=== PATIENT | female | born 1975 | race Caucasian/White ===

== ENCOUNTER 2016-07-24 08:15 | Emergency (ER) | payer BC ==
[~2016-07-24] VITALS: Ht 152.4 cm; Wt 63.9 kg
[~2016-07-24 08:15] MED LIST: BUSPAR10 MG PO; CIPRO500 MG PO; CYCLOBENZAPRINE5 MG PO; DOXYCYCLINE HY100 MG PO; DULOXETINE HCL60 MG PO; FLAGYL500 MG PO; MOTRIN600 MG PO; NAPROXEN500 MG PO; PROZAC40 MG PO; RANITIDINE HCL150 MG PO; TRAMADOL HCL50 MG PO; XANAX0.25 MG PO; ZANTAC150 MG PO; ZOFRAN ODT4 MG PO; [UNRECOGNIZED DRUG - REMARK]
[2016-07-24 09:19] LABS: MCH 30.5 PG (29.0-34.0); MCHC 34.4 G/DL (30.0-36.0); MCV 88.6 FL (83-99); MEAN PLAT.VOLUME 9.9 uM^3 (9.5-12.4); PLATELET COUNT 298 K/uL (156-360); RBC DIS.WIDTH-CV 12.1 % (11.8-14.6); RBC DIS.WIDTH-SD 38.5 % (39-53); RED BLOOD COUNT 4.63 M/uL (3.80-5.20); WHITE BLOOD COUNT 6.8 K/uL (4.1-10.2)
[2016-07-24 09:29] LABS: CHLORIDE 107 mEq/L (99-109); POTASSIUM 4.3 mEq/L (3.7-5.4); SODIUM 136 mEq/L (136-147)
[2016-07-24 09:31] LABS: GLUCOSE 98 mg/dL (70-99)
[2016-07-24 09:32] LABS: ANION GAP 10 MEQ/L (2-14)
[2016-07-24 09:35] LABS: GFR ESTIMATE (CALCULATED) > 59 mL/min/; UREA NITROGEN (BUN) 12 mg/dL (9-23)
[2016-07-24 09:43] LABS: ERTH.SED.RATE 17 MM/HR (0-20)
[2016-07-24 10:27] LABS: C-REACTIVE PROTEIN 6.6 MG/L (0-10)
[2016-07-24] MEDS ORDERED: PREDNISONE10 MG PO (11:47)
[2016-07-24 12:03] VITALS: BP 130/98
== END 2016-07-24 12:04 | disposition home or self-care (01) ==
LOC: EME 08:15
PROVIDERS: Nurse Practitioner Family
DX: H57.9 Unspecified disorder of eye and adnexa (principal); F41.9 Anxiety disorder, unspecified
CPT/HCPCS: 80048; 85027; 85651; 86140; 99281; 99284; J7512; Q0177

== ENCOUNTER 2016-08-12 17:12 | Emergency (ER) | payer BC ==
[~2016-08-12] VITALS: Ht 152.4 cm; Wt 64.5 kg
[~2016-08-12 17:12] MED LIST changes: +PREDNISONE10 MG PO
[2016-08-12 17:25] VITALS: BP 115/74
[2016-08-12] MEDS ORDERED: NORTRIPTYLINE H10 MG PO (18:01)
[2016-08-12] MEDS ORDERED: AMOXICILLIN875 MG PO (18:02)
[2016-08-12 18:46] LABS: HEMATOCRIT 39.7 % (36.0-46.0); MCH 30.4 PG (29.0-34.0); MCHC 34.3 G/DL (30.0-36.0); MCV 88.8 FL (83-99); MEAN PLAT.VOLUME 9.8 uM^3 (9.5-12.4); PLATELET COUNT 265 K/uL (156-360); RBC DIS.WIDTH-CV 12.7 % (11.8-14.6); RBC DIS.WIDTH-SD 40.1 % (39-53); RED BLOOD COUNT 4.47 M/uL (3.80-5.20); WHITE BLOOD COUNT 7.5 K/uL (4.1-10.2)
[2016-08-12 18:58] LABS: CHLORIDE 110 mEq/L (99-109); POTASSIUM 4.3 mEq/L (3.7-5.4); SODIUM 140 mEq/L (136-147)
[2016-08-12 18:59] LABS: GLUCOSE 101 mg/dL (70-99)
[2016-08-12 19:01] LABS: ANION GAP 7 MEQ/L (2-14)
[2016-08-12 19:03] LABS: GFR ESTIMATE (CALCULATED) > 59 mL/min/
[2016-08-12 19:04] LABS: UREA NITROGEN (BUN) 6 mg/dL (9-23)
[2016-08-12] MEDS ORDERED: ANTIVERT25 MG PO (20:16)
[2016-08-12] MEDS ORDERED: PREDNISONE10 MG PO (20:16)
== END 2016-08-12 20:31 | disposition home or self-care (01) ==
LOC: EME 17:12
PROVIDERS: Physician Assistant
DX: T42.6X5A Adverse effect of other antiepileptic and sedative-hypnotic drugs, initial encounter (principal); R42 Dizziness and giddiness; R20.0 Anesthesia of skin
CPT/HCPCS: 70450; 80048; 85027; 99281; 99283

== ENCOUNTER 2017-03-03 18:13 | Emergency (ER) | payer BC ==
[~2017-03-03] VITALS: Ht 152.4 cm; Wt 63.0 kg
[~2017-03-03 18:13] MED LIST changes: +AMOXICILLIN875 MG PO; +ANTIVERT25 MG PO; +NORTRIPTYLINE H10 MG PO
[2017-03-03 19:50] LABS: HEMATOCRIT 39.3 % (36.0-46.0); MCH 30.5 PG (29.0-34.0); MCHC 34.1 G/DL (30.0-36.0); MCV 89.3 FL (83-99); MEAN PLAT.VOLUME 9.5 uM^3 (9.5-12.4); PLATELET COUNT 265 K/uL (156-360); RBC DIS.WIDTH-CV 12.1 % (11.8-14.6); RBC DIS.WIDTH-SD 39.8 % (39-53); WHITE BLOOD COUNT 6.3 K/uL (4.1-10.2)
[2017-03-03 20:01] LABS: CHLORIDE 111 mEq/L (99-109); POTASSIUM 3.9 mEq/L (3.7-5.4); SODIUM 141 mEq/L (136-147)
[2017-03-03 20:02] LABS: GLUCOSE 102 mg/dL (70-99)
[2017-03-03 20:04] LABS: ANION GAP 8 MEQ/L (2-14)
[2017-03-03 20:06] LABS: GFR ESTIMATE (CALCULATED) > 59 mL/min/
[2017-03-03 20:07] LABS: UREA NITROGEN (BUN) 9 mg/dL (9-23)
[2017-03-03 20:12] LABS: TROP-I INTERPRETATION NEGATIVE; TROPONIN-I < 0.01 ng/mL (0.0-0.30)
[2017-03-03 20:17] LABS: D-DIMER ELISA < 150.00 ng/mLDDU (<230)
[2017-03-03 23:49] LABS: TROP-I INTERPRETATION NEGATIVE; TROPONIN-I < 0.01 ng/mL (0.0-0.30)
[2017-03-04 00:32] VITALS: BP 151/72
== END 2017-03-04 00:33 | disposition home or self-care (01) ==
LOC: EME 18:13
PROVIDERS: Emergency Medicine
DX: R07.9 Chest pain, unspecified (principal)
CPT/HCPCS: 71020; 80048; 84484; 85027; 85379; 93005; 99281; 99285

== ENCOUNTER 2017-12-06 05:31 | Day surgery (SDC) | payer BC ==
[~2017-12-06] VITALS: Ht 152.4 cm; Wt 61.2 kg
[~2017-12-06 05:31] MED LIST changes: +MIRALAX17 GM PO; +MOTRIN800 MG PO; +MULTIPLE VITAM1 EACH PO; +TYLENOL EXTRA500 MG PO; +VITAMIN D31000 UNIT PO
[2017-12-06 06:49] VITALS: BP 132/68
[2017-12-06] MEDS ORDERED: MOTRIN800 MG PO (09:57)
[2017-12-06] MEDS ORDERED: PERCOCET 5/31 TABLET PO (09:57)
[2017-12-06 11:42] VITALS: BP 114/56
[2017-12-06 12:45] VITALS: BP 102/51
[2017-12-06 13:57] VITALS: BP 131/66
== END 2017-12-06 14:21 | disposition home or self-care (01) ==
LOC: SDC 05:31
PROC: 0UT94ZZ Resection of Uterus, Percutaneous Endoscopic Approach (ICD-10-PCS; principal; 2017-12-06)
DX: D25.1 Intramural leiomyoma of uterus (principal); N80.0 Endometriosis of uterus; N81.4 Uterovaginal prolapse, unspecified; K21.9 Gastro-esophageal reflux disease without esophagitis; Z87.891 Personal history of nicotine dependence; Z80.3 Family history of malignant neoplasm of breast
CPT/HCPCS: 88307; J0131; J0690; J1100; J1170; J1885; J2250; J2405; J2710; J3010; J7643; Q0175

== ENCOUNTER 2018-01-10 09:12 | Emergency (ER) | payer BC ==
[~2018-01-10] VITALS: Ht 152.4 cm; Wt 58.3 kg
[~2018-01-10 09:12] MED LIST changes: +PERCOCET 5/31 TABLET PO
[2018-01-10 09:57] LABS: HEMATOCRIT 38.3 % (36.0-46.0); HEMOGLOBIN 13.4 G/DL (11.9-15.5); MCH 30.9 PG (29.0-34.0); MCV 88.5 FL (83-99); RBC DIS.WIDTH-CV 12.2 % (11.8-14.6); RBC DIS.WIDTH-SD 39.6 % (39-53); RED BLOOD COUNT 4.33 M/uL (3.80-5.20); WHITE BLOOD COUNT 6.2 K/uL (4.1-10.2)
[2018-01-10 10:04] LABS: APPEARANCE CLOUDY ((CLEAR)); BILIRUBIN NEGATIVE; BLOOD LARGE; COLOR YELLOW ((YELLOW)); GLUCOSE (STRIP) NEGATIVE; KETONES 20; LEUKOCYTES MODERATE; NITRITE NEGATIVE; PROTEIN (STRIP) 30; SPECIFIC GRAVITY 1.024 (1.000-1.030); UROBILINOGEN 0.2 MG/DL (0.2-1.0)
[2018-01-10 10:10] LABS: ALBUMIN 4.3 g/dL (3.2-4.8); CHLORIDE 109 mEq/L (99-109); POTASSIUM 3.9 mEq/L (3.7-5.4); SODIUM 139 mEq/L (136-147)
[2018-01-10 10:13] LABS: GLUCOSE 97 mg/dL (70-99); TOTAL PROTEIN 7.2 g/dL (6.4-8.3)
[2018-01-10 10:15] LABS: TOTAL BILIRUBIN 0.4 mg/dL (0.0-1.0)
[2018-01-10 10:16] LABS: ALKALINE PHOSPHATASE 68 IU/L (3-129); CREATININE 0.8 mg/dL (0.6-1.3); GFR ESTIMATE (CALCULATED) > 59 mL/min/
[2018-01-10 10:17] LABS: UREA NITROGEN (BUN) 7 mg/dL (9-23)
[2018-01-10 10:18] LABS: AST (GOT) 16 IU/L (2-34)
[2018-01-10 10:19] LABS: ALT (GPT) 19 IU/L (3-49)
[2018-01-10 10:28] LABS: RED BLOOD CELLS NONE SEEN /HPF (0-5); WHITE BLOOD CELLS 20-30 /HPF (0-5)
[2018-01-10 10:29] LABS: BACTERIA 1+ /HPF; EPITHELIAL CELLS 1+ /HPF; MUCUS NONE SEEN /LPF; UCUL ADDED? YES
[2018-01-10 10:32] LABS: PLATELET COUNT 268 K/uL (156-360)
[2018-01-10] MEDS ORDERED: BENTYL20 MG PO (11:19)
[2018-01-10] MEDS ORDERED: CIPRO500 MG PO (11:19)
[2018-01-10] MEDS ORDERED: TYLENOL WITH C1 EACH PO (11:33)
[2018-01-10] MEDS ORDERED: ZOFRAN4 MG PO (11:33)
[2018-01-10 11:39] VITALS: BP 152/84
== END 2018-01-10 11:41 | disposition home or self-care (01) ==
LOC: EME 09:12
DX: R19.7 Diarrhea, unspecified (principal); N39.0 Urinary tract infection, site not specified; Z90.710 Acquired absence of both cervix and uterus; Z87.891 Personal history of nicotine dependence
CPT/HCPCS: 80053; 81003; 85027; 87086; 99281; 99284; J7030